=== PATIENT | female | born 1950 | race Caucasian/White ===

== ENCOUNTER → 2018-07-03 | Outpatient (CLI) | payer MEDICARE, BC ==
[~2018-07-03] MED LIST: REGADENOSON 0.4 MG/5 ML SYRINGE ONE
== END | disposition home or self-care (01) ==
LOC: CFH 07:36
PROVIDERS: ATTEND Internal Medicine Cardiovascular Disease
DX: I35.0 Nonrheumatic aortic (valve) stenosis (principal)
CPT/HCPCS: 78452; 93017; A9502; J2785

== ENCOUNTER 2018-11-11 06:58 | Day surgery (SDC) | payer MEDICARE, BC ==
[~2018-11-11] VITALS: Ht 165.1 cm; Wt 71.8 kg
[2018-11-11] MEDS ORDERED: VIT1TABL32 PO (07:26)
[2018-11-11] MEDS ORDERED: OMEG-170 PO (07:28)
[2018-11-11] MEDS ORDERED: ESOM40CA PO (07:28)
[2018-11-11] MEDS ORDERED: ASPI81TA45 PO (07:28)
[2018-11-11] MEDS ORDERED: ATOR40TA78 PO (07:28)
[2018-11-11] MEDS ORDERED: SODIUM CHLORIDE 0.9% 1,000 ML IV SCH (07:30)
[2018-11-11] MEDS ORDERED: PROPOFOL 10 MG/ML, 50ML ONE (08:08)
== END 2018-11-11 10:00 | disposition home or self-care (01) ==
LOC: CACL 06:58
PROVIDERS: ATTEND Internal Medicine Cardiovascular Disease
DX: I34.0 Nonrheumatic mitral (valve) insufficiency (principal); I35.0 Nonrheumatic aortic (valve) stenosis; E78.5 Hyperlipidemia, unspecified; I10 Essential (primary) hypertension; Z88.0 Allergy status to penicillin; Z79.82 Long term (current) use of aspirin
CPT/HCPCS: 93312; 93325; J2704